=== PATIENT | female | born 1945 | race Caucasian/White ===

== ENCOUNTER 2023-09-12 08:34 | Observation (INO) ==
--- NOTE | 2023-08-16 13:32 | PAT Medication Instructions ---
Medication Instructions Date of Service August 16, 2023 Home Medications amlodipine 5 mg tablet (Norvasc) 5 mg PO HS lisinopril 10 mg tablet 10 mg PO QAM B-complex with vitamin C 1 tab PO QAM atorvastatin 40 mg tablet 40 mg PO HS bupropion HCl 150 mg 24 hr tablet, extended release 300 mg PO QAM cholecalciferol (vitamin D3) 125 mcg (5,000 unit) tablet (Vitamin D3) 250 mcg PO QAM duloxetine 60 mg capsule,delayed release 60 mg PO QAM furosemide 20 mg tablet (Lasix) 20 mg PO DAILY PRN leg edema gabapentin 100 mg capsule 100 mg PO TID gabapentin 400 mg capsule 400 mg PO TID memantine 5 mg tablet (Namenda) 5 mg PO BID pantoprazole 20 mg tablet,delayed release (Protonix) 20 mg PO QAM rivastigmine 4.6 mg/24 hour transdermal patch 4.6 mg transdermal QAM topiramate 50 mg tablet (Topamax) 50 mg PO BID trazodone 100 mg tablet 200 mg PO HS MEDICATION INSTRUCTIONS: STOP taking 24 hours before surgery rivastigmine 4.6 mg/24 hour transdermal patch 4.6 mg transdermal QAM DO NOT take the morning of surgery furosemide 20 mg tablet (Lasix) 20 mg PO DAILY PRN leg edema cholecalciferol (vitamin D3) 125 mcg (5,000 unit) tablet (Vitamin D3) 250 mcg PO QAM lisinopril 10 mg tablet 10 mg PO QAM B-complex with vitamin C 1 tab PO QAM Take morning of surgery With a small sip of water, OTHERWISE NOTHING TO EAT OR DRINK AFTER MIDNIGHT: gabapentin 100 mg capsule 100 mg PO TID gabapentin 400 mg capsule 400 mg PO TID topiramate 50 mg tablet (Topamax) 50 mg PO BID pantoprazole 20 mg tablet,delayed release (Protonix) 20 mg PO QAM duloxetine 60 mg capsule,delayed release 60 mg PO QAM memantine 5 mg tablet (Namenda) 5 mg PO BID bupropion HCl 150 mg 24 hr tablet, extended release 300 mg PO QAM Take evening before surgery atorvastatin 40 mg tablet 40 mg PO HS trazodone 100 mg tablet 200 mg PO HS amlodipine 5 mg tablet (Norvasc) 5 mg PO HS gabapentin 100 mg capsule 100 mg PO TID gabapentin 400 mg capsule 400 mg PO TID topiramate 50 mg tablet (Topamax) 50 mg PO BID memantine 5 mg tablet (Namenda) 5 mg PO BID Other Notes If you have any questions please call us at [phone] or [phone] or [phone] or [phone]
--- NOTE | 2023-08-22 11:43 | Anesthesiology Consultation ---
Date of Service August 22, 2023 Assessment & Plan (1) Encounter for pre-operative examination: - Case discussed with Dr. Brooke who advised sending communication form to PCP for confirmation if patient is to still be on levothyroxine and antiepileptic. He advised patient did not need PCP clearance/optimization approval overall. Will send document to PCP and obtain most recent office note from [facility] neurology. - pending confirmation of current medication list and medication instructions being sent to patient once sister who manages medications is available 08/29/23. - Patient's primary caregiver is out of town and friend who accompanied patient today was unsure of current medications. Patient and accompanying friend were comfortable being in room for friend to provide additional information when able given patient's memory changes. They advised her sister, RN, manages her medications and is available to contact 08/29/23. - difficult intubation: limited cervical spine ROM s/p cervical spine fusion. Chart Review Chart Review: Pending: Refer to Additional Notes / Consult section and Patient seen in Pre Admission Testing Teaching & Discussion Pre-Anesthesia Teaching/Discussion Notes: Instructed NPO after midnight before surgery, except medications with 15 cc of water. Medication instructions provid ed according to the PAT guidelines. History Surgery Operation Date: 09/12/23 11:55 Proposed Procedures p Left Reverse Total Shoulder Arthroplasty - Storm Marshall, Height/Weight Height: 5 ft 7 in Weight: 80.1 kg Allergies Allergy/AdvReac Type Severity Reaction Status Date / Time No Known Allergies Allergy Verified 08/15/23 10:56 Medications Home Medications Medication Instructions Recorded Confirmed Last Taken amlodipine 5 mg tablet (Norvasc) 5 mg PO HS 07/05/23 08/15/23 Unknown lisinopril 10 mg tablet 10 mg PO QAM 07/05/23 08/15/23 Unknown B-complex with vitamin C 1 tab PO QAM 08/15/23 08/15/23 Unknown atorvastatin 40 mg tablet 40 mg PO HS 08/15/23 08/15/23 Unknown bupropion HCl 150 mg 24 hr tablet, 300 mg PO QAM 08/15/23 08/15/23 Unknown extended release cholecalciferol (vitamin D3) 125 250 mcg PO QAM 08/15/23 08/15/23 Unknown mcg (5,000 unit) tablet (Vitamin D3) duloxetine 60 mg capsule,delayed 60 mg PO QAM 08/15/23 08/15/23 Unknown release furosemide 20 mg tablet (Lasix) 20 mg PO DAILY PRN leg edema 08/15/23 08/15/23 Unknown gabapentin 100 mg capsule 100 mg PO TID 08/15/23 08/15/23 Unknown gabapentin 400 mg capsule 400 mg PO TID 08/15/23 08/15/23 Unknown memantine 5 mg tablet (Namenda) 5 mg PO BID 08/15/23 08/15/23 Unknown pantoprazole 20 mg tablet,delayed 20 mg PO QAM 08/15/23 08/15/23 Unknown release (Protonix) rivastigmine 4.6 mg/24 hour 4.6 mg transdermal QAM 08/15/23 08/15/23 Unknown transdermal patch topiramate 50 mg tablet (Topamax) 50 mg PO BID 08/15/23 08/15/23 Unknown trazodone 100 mg tablet 200 mg PO HS 08/15/23 08/15/23 Unknown Past Medical History Medical History (Updated 08/23/23 @ 09:37 by Tania Augustin PA-C) Cervical vertebral fracture Chronic back pain Follows with Dr Charles ([facility]) Pain Management Degenerative disc disease Dementia Dx 2019; short term memory loss Alert and oriented x3 Depression Dry mouth H/O renal failure milo-operatively with knee surgeries in past History of COVID-spring- mild cold symptoms, resolved Hyperlipidemia Hypertension controlled, stable per pt Hypothyroidism pt unsure if is still taking levothyroxine Neurogenic bladder Straight cath PRN Follows with PCP PAD (peripheral artery disease) Patient unsure LLE stent ([facility]/approximately 2015) Peripheral neuropathy feet Seizure last seizure 2020 per pt Hx of lamictal daily but patient discontinued lamictal 03/2023 Follows with [facility] Neurology Sleep apnea 2lpm via n/c (non-compliant) Patient denies h/o stroke, heart attack, heart failure, blood clots/DVTs or bloo d transfusions. Exercise / Class Metabolic Activity III < 4 Walking/Shop/Light housework (denies chest discomfort or shortness of breath with usual activities) Past Family History Family History Other No family history of adverse response to anesthesia Past Surgical History Surgical History Failed spinal cord stimulator Removed H/O hand surgery right hand x2 History of appendectomy History of cataract surgery bilateral History of colonoscopy History of cystoscopy History of dilatation and curettage History of esophagogastroduodenoscopy (EGD) History of left shoulder replacement History of repair of rotator cuff right History of tonsillectomy Hx of angioplasty LLE stent ([facility]/approximately 2015) S/P ACL repair left S/P cervical spinal fusion C3/C4 Limited ROM, difficult turning to the left, minor difficulty up and down. S/P epidural steroid injection S/P left knee arthroscopy x2 S/P placement of nerve stimulator S/P total knee replacement x5 right TKA S/P trigger finger release x2 Status post surgery removal of spinal cord stimulator Past Anesthesia History Difficult Airway (s/p cervical spine surgery) and Other (awareness during a knee procedure, pt unsure which surgery) History of PONV No Hx of PONV and No Hx of Motion Sickness Social History Smoking Status: Never smoker Do You Dip or Chew Tobacco: No Hx Alcohol Use: No Hx Substance Use: No substance use type: does not use Review of Systems Patient denies chest pain, shortness of breath, dyspnea on exertion, reflux, fever, chills, cough, wheezing, or palpitations. Physical Exam Vital Signs Vitals BP 125/84 P 70 TEMP 98.7 SP02 94% on RA RESP 18 Physical Patient resting comfortably in chair in no acute distress, alert and oriented, responding appropriately throughout visit Full cervical extension range of motion without pain TMD 3.5 finger breadths Mallampati Score 2 Dentition: front upper implants, denies chipped or loose teeth, caps/crowns, or bridges Lungs: normal respiratory effort. Good air movement, clear throughout to auscultation, no adventitious breath sounds Cardiac: regular rate and rhythm, no murmurs noted Carotid arteries: negative bruit bilat Lab Results Anesthesia Preop Results Results Anesthesia Widget: WBC 8.36 K/ul (4.8-10.8) 08/22/23 Hgb 13.3 g/dl (12.0-16.0) 08/22/23 Hct 40.0 % (37.0-47.0) 08/22/23 Plt 261 K/uL (130-400) 08/22/23 Na 138 mmol/L (136-145) 08/22/23 K 3.9 mmol/L (3.5-5.1) 08/22/23 Cl 106 mmol/L (98-107) 08/22/23 CO2 27 mmol/L (21-32) 08/22/23 BUN 22 mg/dl (6-23) 08/22/23 Creat 0.94 mg/dl (0.6-1.2) 08/22/23 Glucose Level 96 mg/dl (70-99(Fasting)) 08/22/23 PT 10.9 Seconds (9.0-12.0) 08/22/23 PTT 27.9 Seconds (21.0-31.0) 08/22/23 INR 1.0 (0.9-1.1) 08/22/23 Blood Type O Positive 08/22/23 Antibody Screen NEGATIVE 08/22/23 Testing Electrocardiogram Date: 03/31/23 Sinus rhythm with sinus arrhythmia with 1st degree AV block, rate 71 bpm Nonspecific T wave abnormality Chest X-Ray Date: 10/13/22 *1view* Stable appearance without acute disease seen at this time
--- NOTE | 2023-08-29 09:04 | Communication Note ---
Date of Service: August 29, 2023 - Patient's medication instructions confirmed by her sister are being mailed to patient's home by sister's request.
--- NOTE | 2023-09-08 06:50 | History & Physical Report ---
Date of Service September 08, 2023 Assessment & Plan (1) Rotator cuff arthropathy of left shoulder: We will proceed with a conversion to a left reverse shoulder arthroplasty. Postoperatively she will be placed in a sling and kept overnight in the hospital for postop medical management. She plans to have the hospital set up home health before discharge. History of Present Illness Chief Complaint: Osteoarthritis of the left shoulder. Primary Care Provider: Antwan Barney Myra is a pleasant 78-year-old female who has been dealing with chronic left shoulder pain. She underwent a left shoulder resurfacing by Dr. Hanley in the past. Initially did well but she is now having more more pain in the shoulder. X-rays have shown worsening arthritis of the glenoid. She has decreased range of motion and concerns for rotator cuff tear. After failed conservative treatment, she has elected proceed with a conversion to a left reverse shoulder arthroplasty.. Allergies Allergy/AdvReac Type Severity Reaction Status Date / Time No Known Allergies Allergy Verified 08/15/23 10:56 Home Medications Medication Instructions Recorded Confirmed Type amlodipine 5 mg tablet (Norvasc) 5 mg PO HS 07/05/23 08/15/23 History lisinopril 10 mg tablet 10 mg PO QAM 07/05/23 08/15/23 History B-complex with vitamin C 1 tab PO QAM 08/15/23 08/15/23 History atorvastatin 40 mg tablet 40 mg PO HS 08/15/23 08/15/23 History bupropion HCl 150 mg 24 hr tablet, 300 mg PO QAM 08/15/23 08/15/23 History extended release cholecalciferol (vitamin D3) 125 250 mcg PO QAM 08/15/23 08/15/23 History mcg (5,000 unit) tablet (Vitamin D3) duloxetine 60 mg capsule,delayed 60 mg PO QAM 08/15/23 08/15/23 History release furosemide 20 mg tablet (Lasix) 20 mg PO DAILY PRN leg edema 08/15/23 08/15/23 History gabapentin 100 mg capsule 100 mg PO TID 08/15/23 08/15/23 History gabapentin 400 mg capsule 400 mg PO TID 08/15/23 08/15/23 History memantine 5 mg tablet (Namenda) 5 mg PO BID 08/15/23 08/15/23 History pantoprazole 20 mg tablet,delayed 20 mg PO QAM 08/15/23 08/15/23 History release (Protonix) rivastigmine 4.6 mg/24 hour 4.6 mg transdermal QAM 08/15/23 08/15/23 History transdermal patch topiramate 50 mg tablet (Topamax) 50 mg PO BID 08/15/23 08/15/23 History trazodone 100 mg tablet 200 mg PO HS 08/15/23 08/15/23 History hydrocodone 5 mg-acetaminophen 325 1 tab PO Q6H PRN Pain 09/01/23 09/01/23 History mg tablet Past Med/Surg History Medical History Cervical vertebral fracture Chronic back pain Follows with Dr Charles ([facility]) Pain Management Degenerative disc disease Dementia Dx 2019; short term memory loss Alert and oriented x3 Depression Dry mouth H/O renal failure milo-operatively with knee surgeries in past History of COVID-spring- mild cold symptoms, resolved Hyperlipidemia Hypertension controlled, stable per pt Hypothyroidism pt unsure if is still taking levothyroxine Neurogenic bladder Straight cath PRN Follows with PCP PAD (peripheral artery disease) Patient unsure LLE stent ([facility] [place]/approximately 2015) Peripheral neuropathy feet Seizure last seizure 2020 per pt Hx of lamictal daily but patient discontinued lamictal 03/[address] [facility] Neurology Sleep apnea 2lpm via n/c (non-compliant) Surgical History Failed spinal cord stimulator Removed H/O hand surgery right hand x2 History of appendectomy History of cataract surgery bilateral History of colonoscopy History of cystoscopy History of dilatation and curettage History of esophagogastroduodenoscopy (EGD) History of left shoulder replacement History of repair of rotator cuff right History of tonsillectomy Hx of angioplasty LLE stent ([facility] [place]/approximately 2015) S/P ACL repair left S/P cervical spinal fusion C3/C4 Limited ROM, difficult turning to the left, minor difficulty up and down. S/P epidural steroid injection S/P left knee arthroscopy x2 S/P placement of nerve stimulator S/P total knee replacement x5 right TKA S/P trigger finger release x2 Status post surgery removal of spinal cord stimulator Family History Other No family history of adverse response to anesthesia Social History Smoking Status: Never smoker Second Hand Exposure: No; Do You Dip or Chew Tobacco: No; Hx Alcohol Use: No Hx Substance Use: No Preferred Language: Zambian Communication Ability: Effective Angiography Nurse Required: No Beliefs That Will Affect Care: None Current Living Situation: Alone Feels Safe at Home: Yes Assistive Devices: Glasses, Hearing Aid - Left and Walker Review of Systems All systems reviewed & are unremarkable except as noted in HPI & below. Physical Exam On physical examination of the left shoulder, she is about 120 degrees of forward elevation and 20 agrees of abduction. She has weakness throughout. She has pain over the glenohumeral joint line. Constitutional WD/WN, vitals as above Eyes PERRL, conjunctivae normal, anicteric sclerae ENMT external ear and nose normal, oropharynx normal Neck trachea midline, no thyromegaly Respiratory normal respiratory effort, lungs clear to auscultation Cardiovascular RRR, no murmur, no edema Gastrointestinal (Abdomen) normal bowel sounds, soft, nontender, no hepatosplenomegaly Skin no rashes, warm and dry Psychiatric A+Ox3, euthymic affect Results & Data Results & Data Laboratory Results . Diagnostic Findings X-rays of the left shoulder show a well-placed left shoulder resurfacing with significant arthritis of the glenoid and some glenoid wear.. . PG Care Time/CCT Total # of Minutes Spent Total Time Spent with Patient: Total time spent is greater than 50% in coordination of care (as documented) at patient's floor/unit and/or counseling patient: Coding Level of Care Code None Diagnoses Rotator cuff arthropathy of left shoulder M12.812
[~2023-09-12 08:34] MED LIST: ACETAMINOPHEN 500 MG TAB PO SCH; BUPIVACAINE 0.5 % 5 MG/1 ML PF 10ML VIAL ONE; FAMOTIDINE 20 MG TAB PO SCH; GABAPENTIN 300 MG CAP PO SCH; LR 15ML/HR IV SCH; LR 60ML/HR IV SCH; ORTHO JOINT MIX INFIL SCH; TRANEXAMIC ACID 1,000 MG **IV Intra-op IV SCH; TRANEXAMIC ACID 1,000 MG **IV Pre-op IV SCH; VANCOMYCIN HCL 1,250 MG in SODIUM CHLORIDE 0.9% 250 ML IV SCH; dexAMETHasone 4 MG TAB PO SCH
--- NOTE | 2023-09-12 09:15 | History & Physical Bridge Note ---
Date of Service September 12, 2023 History & Physical Bridge Note I have examined the patient, reviewed the History & Physical and in the interval since the performance of the History & Physical I have noted the following changes of clinical significance: no changes noted
[2023-09-12] MEDS ORDERED: fentaNYL citrate PF 100 MCG/2 ML VIAL ONE (09:20)
[2023-09-12] MEDS ORDERED: MIDAZOLAM HCL 1 MG/ML 2ML VIAL ONE (09:20)
[2023-09-12] MEDS ORDERED: ORTHO JOINT ANESTHETIC ONE (09:43)
[2023-09-12] MEDS ORDERED: ATROPINE SULFATE 0.1 MG/ML 10ML SYR IV PRN (09:53)
[2023-09-12] MEDS ORDERED: ePHEDrine sulfate 50 MG/ML AMP IV PRN (09:53)
[2023-09-12] MEDS ORDERED: ONDANSETRON INJ 2 MG/ML 2 ML VIAL IV PRN ×2 (09:53→13:20)
[2023-09-12] MEDS ORDERED: LIDOCAINE 2% 2 ML VIAL/AMP(20MG/ML) INFIL ONE (11:22)
[2023-09-12] MEDS ORDERED: PROPOFOL IV EMULSION 10 MG/ML 20 ML VIAL IV ONE (11:22)
[2023-09-12] MEDS ORDERED: ONDANSETRON INJ 2 MG/ML 2 ML VIAL ONE (11:22)
[2023-09-12] MEDS ORDERED: ePHEDrine sulfate 50 MG/5 ML SYR ONE (11:47)
[2023-09-12] MEDS ORDERED: PHENYLEPHRINE HCL 10 MG/ML VIAL ONE (11:47)
[2023-09-12] MEDS ORDERED: GLYCOPYRROLATE 0.2 MG/ML VIAL ONE (11:47)
--- NOTE | 2023-09-12 11:47 | Operative Report ---
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 (Left) - Storm Marshall DO Surgeon Storm Marshall DO Cotton Washer Storm Mcelroy PA-C Estimated Blood Loss 300 Findings Consistent with Post-Op Diagnosis Specimens None Description of Procedure Implants used: I used a [employer] Comprehensive reverse total shoulder arthroplasty system with a size 12 press fit micro humeral stem, a +6 offset humeral tray and a +3 retentive humeral bearing, a 25 mm small augment baseplate with a 6.5 mm central screw and superior and inferior locking screws, and a size 40 mm eccentric glenosphere. Myra arrived at [facility] for the above procedure. She was seen in the preoperative holding area and the operative extremity was identified and signed. She was given a preoperative antibiotic, TXA, and an interscalene nerve block. She was taken back to the operating room, laid on table in supine position, and put under general anesthesia. She was then put into the beachchair position. The shoulder was then prepped and draped in sterile fashion. A timeout was done and the patient and the operative extremity was properly identified. A deltopectoral approach was used. Dissection was taken down through the fascia and the deltoid was retracted laterally and the conjoined tendon was retracted medially. This dissection took longer than usual due to the amount of scar tissue formation. The anterior shoulder was exposed. The biceps tendon was chronically torn from the previous procedure. The subscapularis was then directly released off the lesser tuberosity with a peel technique. The inferior capsule was released and the humeral head was dislocated. There was a previous humeral resurfacing in place. An oscillating saw was used to resect the bone from the head resurfacing. The resurfacing was then removed. A canal finding reamer was sent down the center of the humeral canal. Sequential reaming up to a size 12 reamer was done. Off that reamer, a proximal humeral resection guide was placed. The proximal humerus was resected at 135 of inclination and 25 of retroversion. Osteophytes were then removed and the glenoid was exposed. Time was spent doing a complete capsular and labral release. The glenoid guide was then placed in the inferior aspect of the glenoid. A 3.2 mm Steinmann pin was then placed into the glenoid vault at 10 of inclination. The glenoid baseplate was then reamed. The final size 25 mm small augment baseplate was then impacted in the place. A 6.5 mm central screw was then placed followed by superior and inferior locking screws. A 40 mm eccentric glenosphere was then impacted into place. Surrounding soft tissues were then injected with 100 cc an orthopedic pain control cocktail. The proximal humerus was then exposed. Sequential broaching of the humerus up to a size 12 broach was done. Off that broach a +6 offset and +3 retentive humeral tray was trialed. The shoulder was then reduced, brought through a full range of motion, and felt to be stable. The shoulder was then dislocated and the broach was removed. The final size 12 micro press-fit humeral stem was then impacted into place. A +3 retentive humeral bearing was then snapped onto a +6 offset humeral tray. The humeral tray was then impacted onto the humeral stem. The shoulder was once again reduced, brought through a full range of motion, and felt to be stable. Subscapularis was retracted and unable to be repaired. A dilute betadyne lavage was then done for 3 minutes. The joint was then irrigated with normal saline solution. Hemostasis was obtained. The interval was closed with 2-0 Vicryl suture. The skin was then closed with 2-0 Vicryl and trever. A Silverlon dressing was placed and the arm was rested in a regular arm sling. She was then extubated and transferred to a hospital bed. She taken to the postanesthesia care unit in stable condition. She tolerated the procedure well. Storm Mcelroy PA-C, was present for the entire procedure. He was critical for patient positioning, prepping, draping, retraction exposure, wound closure and application of sterile dressing. I attest to the content of the Intraoperative Record and any orders documented therein. Any exceptions are noted below.
[2023-09-12] MEDS: fentaNYL citrate PF 100 MCG/2 ML VIAL IV PRN ×4 (12:22→12:40)
--- NOTE | 2023-09-12 13:06 | Anesthesiology Progress Note ---
Date of Service September 12, 2023 Anesthesia Post Procedure Vital Signs Vital Signs: Temp Pulse Pulse Resp BP Pulse Ox O2 Del Method 09/12/23 12:55 97.5 F L 56 L 14 110/73 96 Nasal Cannula 09/12/23 12:45 67 18 114/70 96 Nasal Cannula 09/12/23 12:35 62 16 122/73 96 Nasal Cannula 09/12/23 12:25 74 18 134/84 97 Oxymask 09/12/23 12:15 62 16 127/77 96 Oxymask 09/12/23 12:05 97.3 F L 65 16 134/85 97 Oxymask 09/12/23 09:10 97.7 F 65 20 127/95 98 Room Air O2 Flow Rate 09/12/23 12:55 2 09/12/23 12:45 2 09/12/23 12:35 2 09/12/23 12:25 6 09/12/23 12:15 6 09/12/23 12:05 6 09/12/23 09:10 Pain Intensity Left Shoulder: Pain Intensity: 7 Transfer of Care Handoff Completed per policy Notes Mental Status: alert / awake / arousable and participated in evaluation Patient Amnestic to Procedure: Yes Nausea / Vomiting: adequately controlled Pain: adequately controlled Airway Patency, RR, SpO2: stable & adequate BP & HR: stable & adequate Hydration State: stable & adequate Anesthetic Complications: no major complications apparent and Pt Satisfied with anesthetic care
[2023-09-12] MEDS ORDERED: VANCOMYCIN CONSULT ACTIVE PRN (13:20)
[2023-09-12] MEDS ORDERED: NALOXONE HCL 0.4 MG/1 ML VIAL/CARP IV PRN (13:20)
[2023-09-12] MEDS ORDERED: bisacodyL 10 MG SUPP PR PRN (13:20)
[2023-09-12] MEDS ORDERED: METOCLOPRAMIDE HCL INJ 5 MG/ML 2 ML VIAL IV PRN (13:20)
[2023-09-12] MEDS ORDERED: FUROSEMIDE 20 MG TAB PO PRN (13:20)
[2023-09-12] MEDS ORDERED: HYDROmorphone INJ 0.5 MG/0.5 ML SYR IV PRN (13:20)
[2023-09-12] MEDS ORDERED: MAGNESIUM HYDROXIDE SUSP 30 ML UDC PO PRN (13:20)
[2023-09-12] MEDS: oxyCODONE HCL IR 5 MG TAB (IMMEDIATE RELEASE) PO PRN ×2 (14:26→19:54)
[2023-09-12] MEDS: ACETAMINOPHEN 500 MG TAB PO SCH ×2 (14:27→21:27)
[2023-09-12] MEDS: GABAPENTIN 400 MG CAP PO SCH ×2 (14:27→19:55)
[2023-09-12] MEDS: GABAPENTIN 100 MG CAP PO SCH ×2 (14:27→19:51)
[2023-09-12] MEDS: SODIUM CHLORIDE 0.9% 1,000 ML IV SCH ×2 (14:28→22:48)
--- NOTE | 2023-09-12 15:25 | XRay Report ---
XR shoulder LT min 2V routine CLINICAL HISTORY: Post shoulder surgery COMPARISON: Left shoulder radiographs July 05, 2023. FINDINGS: Alignment of the reverse total left shoulder arthroplasty is anatomic. There is no peripro sthetic fracture or unexpected radiopaque foreign body. There are skin trever. IMPRESSION: Expected findings following reverse total left shoulder arthroplasty. ACT 112: Negative or not required by law. Electronically signed by: Justin Rojas M.D. 09/12/2023 3:23 PM
[2023-09-12] MEDS: DOCUSATE SODIUM 100 MG CAP PO SCH (19:52)
[2023-09-12] MEDS: MEMANTINE HCL 5 MG TAB PO SCH (19:52)
[2023-09-12] MEDS: TOPIRAMATE 50 MG TAB PO SCH (19:53)
[2023-09-12] MEDS ORDERED: ATORVASTATIN 40 MG TAB PO SCH (21:00)
[2023-09-12] MEDS ORDERED: SENNA 8.6 MG TAB PO SCH (21:00)
[2023-09-12] MEDS ORDERED: traZODone HCL 100 MG TAB PO SCH (21:00)
[2023-09-12] MEDS ORDERED: amLODIPine BESYLATE 5 MG TAB PO SCH (21:00)
[2023-09-12] MEDS ORDERED: ZOLPIDEM TARTRATE 10 MG TAB PO PRN (21:45)
[2023-09-12] MEDS ORDERED: VANCOMYCIN HCL 1,250 MG in SODIUM CHLORIDE 0.9% 500 ML IV SCH (22:15)
[2023-09-13] MEDS: oxyCODONE HCL IR 5 MG TAB (IMMEDIATE RELEASE) PO PRN ×3 (01:51→13:42)
[2023-09-13] MEDS: ACETAMINOPHEN 500 MG TAB PO SCH ×2 (05:13→13:41)
--- NOTE | 2023-09-13 05:56 | Orthopedic Progress Note ---
Date of Service September 13, 2023 Assessment & Plan (1) Status post reverse total replacement of left shoulder: Overall she is doing fairly well. She is not having much pain in the left shoulder. She will be seen by physical therapy today for ambulation and range of motion exercises. She understands the nerve block should wear off throughout the day today. The Simons will be discontinued and she can be discharged home later today. She will follow-up with orthopedics in 2 weeks. Abdoulaye Renteria was seen and examined at bedside this morning. Overall she is doing fairly well. She is not having too much pain in the left shoulder. She is a little bit annoyed and frustrated with the nerve block. She still dealing with some periscapular pain. She has no other complaints.. Review of Systems All systems reviewed & are unremarkable except as noted in HPI & below. Physical Exam On physical examination of the left arm, the dressing is clean and dry. She is wearing her sling as instructed. The nerve block is still in effect.. Results & Data Results & Data Laboratory Results . Diagnostic Findings Postoperative x-rays of the left shoulder show the prosthesis to be in anatomic alignment without any evidence of fracture complication, or loosening.. PG Care Time/CCT Total # of Minutes Spent Total Time Spent with Patient: Total time spent is greater than 50% in coordination of care (as documented) at patient's floor/unit and/or counseling patient: Coding Level of Care Code 59909 Post Operative Follow-Up Diagnoses Status post reverse total replacement of left shoulder Z96.612
[2023-09-13] MEDS ORDERED: dexAMETHasone 4 MG TAB PO SCH (08:00)
[2023-09-13] MEDS ORDERED: MULTIVITAMIN TAB PO SCH (09:00)
[2023-09-13] MEDS ORDERED: lisinopril 10 MG TAB PO SCH (09:00)
[2023-09-13] MEDS ORDERED: DULoxetine HCL 60 MG CAP PO SCH (09:00)
[2023-09-13] MEDS ORDERED: buPROPion XL 300 MG TABCR PO SCH (09:00)
[2023-09-13] MEDS: GABAPENTIN 100 MG CAP PO SCH ×2 (09:22→13:42)
[2023-09-13] MEDS: TOPIRAMATE 50 MG TAB PO SCH (09:23)
[2023-09-13] MEDS: DOCUSATE SODIUM 100 MG CAP PO SCH (09:23)
[2023-09-13] MEDS: GABAPENTIN 400 MG CAP PO SCH ×2 (09:23→13:42)
[2023-09-13] MEDS: MEMANTINE HCL 5 MG TAB PO SCH (09:23)
--- NOTE | 2023-09-28 16:42 | Discharge Summary ---
Date of Service September 28, 2023 Admission HPI (Per Admitting) Myra is a pleasant 78-year-old female who has been dealing with chronic left shoulder pain. She underwent a left shoulder resurfacing by Dr. Hanley in the past. Initially did well but she is now having more more pain in the shoulder. X-rays have shown worsening arthritis of the glenoid. She has decreased range of motion and concerns for rotator cuff tear. After failed conservative treatment, she has elected proceed with a conversion to a left reverse shoulder arthroplasty.. Admission Exam (Per Admitting) On physical examination of the left shoulder, she is about 120 degrees of forward elevation and 20 agrees of abduction. She has weakness throughout. She has pain over the glenohumeral joint line. Principal Diagnosis Same as "Discharge Diagnosis" noted below under Discharge Instructions. Discharge Exam On physical examination of the left arm, the dressing is clean and dry. She is wearing her sling as instructed. The nerve block is still in effect.. Discharge Data Procedures Performed Operation Date: 09/12/23 10:00 Actual Procedures p Left Reverse Total Shoulder Arthroplasty(Left) - Storm Marshall DO Ordered Studies 09/12/23 05:00 US - OR guided needle placemen Routine Hospital Course (1) Status post reverse total replacement of left shoulder: On September 12, 2023 Myra arrived at [facility] and underwent a left reverse shoulder replacement without complication. She had a general anesthetic and a left interscalene nerve block. Postoperatively she was placed in a sling and transferred to the general orthopedic floors. Her hospital course was uneventful. On postop day #1, her vital signs were stable and her pain was well controlled. She was able to participate well with physical therapy doing ambulation and range of motion exercises. Her Simons was discontinued. She was then discharged home. She will follow-up orthopedics in 2 weeks. PG Care Time/CCT Total # of Minutes Spent Total Time Spent with Patient: Total time spent is greater than 50% in coordination of care (as documented) at patient's floor/unit and/or counseling patient: Discharge Plan Discharge Items Patient Disposition: Home - Home Health Services Reason For Visit: DJD Left Shoulder Discharge Diagnosis: Left reverse shoulder replacement Activity: Resume your previous activity Non-emergency contact: Surgeon Call non-emergency contact if: your wound has increased redness and your wound has increased drainage Follow-up/Referrals: Antwan Barney M.D. [Primary Care Provider] - Diet: Regular Addtl Attending Provider Instructions: Activity and Therapy Recommendations: * If you are using [facility] then therapy will be provided at your home until they feel you have accomplished all of your goals. * If you are using [facility] then Physical Therapy will be provided until they feel you are ready to start Outpatient Physical Therapy. * If you are not using home therapy then Outpatient Physical Therapy should start about 3-5 days from your day of surgery. Therapy will last about 8-12 weeks * Wear your sling for 3 weeks, unless otherwise instructed. You may remove your sling to shower and to dress, but otherwise, you should be in your sling at all times, including while sleeping * The shoulder replacement is very stable and you can use your hand while in the sling * You were shown a series of exercises in the hospital. Do these exercises daily including the exercises you were shown in physical therapy. Medications: * Narcotic You will likely be sent home from the hospital with a prescription for the narcotic pain medication that worked best throughout your stay. * Bactrim-take the antibiotic twice a day for 10 days to help prevent any possible infections. * Other medications may be prescribed for specific circumstances. If you have any questions, please call the office at . * Resume previous home medications unless otherwise instructed Dressing Care: Leave the Silverlon dressing in place for 7 days. After 7 days you may remove the dressing. If the incision is not draining then you may leave the trever open to air. If there is a little bit of drainage or if the trever are getting stuck on your clothing then cover the incision with a dry dressing. The trever will be removed at your 2 week follow-up appointment. Showering: You may shower with the Silverlon dressing in place. Do not let the shower spray hit the dressing directly. Pat the Silverlon dressing dry. If the dressing becomes wet underneath, then simply remove the dressing. Keep the incision dry until you are 7 days out from the day of surgery. After 7 days you may remove the Silverlon dressing and shower with the trever exposed. Let soapy water run over the trever and pat them dry. Do not scrub or soak the incision. Things To Watch For: * Drainage from the incision site that occurs more than one week after your surgery. * Increased redness at the incision site. * Fever above 102 degrees Fahrenheit. * Unusual chest pain or shortness of breath. * Call [facility] at with any of the above problems Follow-Up Visit: Follow-up with Dr. Marshall's PA (Storm Mcelroy) 2-3 weeks after your day of surgery. He will remove your trever and answer any questions. If you have any additional questions or concerns, Dr Marshall is usually in the office at the same time and will be available An appointment was probably scheduled when you signed-up for surgery in the office. If you have any questions call More detailed instructions as well as Frequently Asked Questions were provided in a folder by our office when you signed-up for surgery. Please review these instructions when you get home. If you have any further questions or concerns, please feel free to call the office at [phone] Pending Studies at Discharge: No Stand-Alone Forms: [facility], Pain - Opioid Pain Management, Smoking Cessation Medications and DC Order Prescriptions: New oxycodone 5 mg Tablet 5 mg PO Q4H PRN (Reason: pain) Qty: 30 0RF Continued amlodipine [Norvasc] 5 mg tablet 5 mg PO HS lisinopril 10 mg tablet 10 mg PO QAM Rx Instructions: LAST FILLED 04/07/23 FOR 5 TABLETS. atorvastatin 40 mg Tablet 40 mg PO HS gabapentin 400 mg Capsule 400 mg PO TID Rx Instructions: TOTAL DOSE 500 MG--TAKES WITH 100 MG CAPSULE. pantoprazole [Protonix] 20 mg Tablet,Delayed Release (Dr/Ec) 20 mg PO QAM Rx Instructions: LAST FILLED 04/07/23 FOR 5 TABS. trazodone 100 mg Tablet 200 mg PO HS furosemide [Lasix] 20 mg Tablet 20 mg PO DAILY PRN (Reason: leg edema) Rx Instructions: LAST FILLED 04/07/23 FOR 5 TABS. gabapentin 100 mg Capsule 100 mg PO TID Rx Instructions: TOTAL DOSE 500 MG--TAKES WITH 400 MG CAPSULE. B-complex with vitamin C Tablet 1 tab PO QAM bupropion HCl 150 mg Tablet Extended Release 24 Hr 300 mg PO QAM Rx Instructions: LAST FILLED 03/01/23 FOR 90 DAYS. memantine [Namenda] 5 mg Tablet 5 mg PO BID rivastigmine 4.6 mg/24 hour Patch 24 Hour 4.6 mg TRANSDERMAL QAM Rx Instructions: LAST FILLED 04/08/23 FOR 30 DAYS. cholecalciferol (vitamin D3) [Vitamin D3] 125 mcg (5,000 unit) Tablet 250 mcg PO QAM topiramate [Topamax] 50 mg Tablet 50 mg PO BID hydrocodone-acetaminophen 5-325 mg Tablet 1 tab PO Q6H PRN (Reason: Pain) No Action oxycodone 5 mg tablet 5 mg PO Q6H PRN (Reason: pain) Qty: 30 0RF zolpidem 10 mg tablet 10 mg PO HS duloxetine 30 mg capsule,delayed release(DR/EC) 30 mg PO DAILY oxycodone 5 mg tablet 5 mg PO Q6H PRN (Reason: pain) Qty: 12 0RF Krames/Other Patient Handouts: Total Shoulder Replacement Surgery Admission Data Admit Date/Time: 09/12/23 12:07 Attending Provider: Storm Marshall Admit Provider: Storm Marshall Primary Care Provider: Antwan Barney Other Interventions: Discharge Summary Assessment (RN) Last Done: 09/13/23 08:00
== END 2023-09-13 15:45 | disposition home health service (06) ==
LOC: ASU 08:34 → 3E 08:34

== ENCOUNTER 2024-09-24 08:20 | Inpatient (IN) ==
--- NOTE | 2024-08-20 12:56 | PAT Medication Instructions ---
Medication Instructions Date of Service August 20, 2024 Home Medications Medication Instructions Recorded oxycodone 5 mg tablet 5 mg PO Q6H PRN pain #30 tabs 08/08/24 amlodipine 5 mg tablet (Norvasc) 5 mg PO HS lisinopril 10 mg tablet 10 mg PO QAM B-complex with vitamin C 1 tab PO QAM atorvastatin 40 mg tablet (Lipitor) 40 mg PO HS bupropion HCl 150 mg 24 hr tablet, extended release 300 mg PO QAM cholecalciferol (vitamin D3) 125 mcg (5,000 unit) tablet (Vitamin D3) 250 mcg PO QAM furosemide 20 mg tablet (Lasix) 20 mg PO DAILY PRN leg edema gabapentin 100 mg capsule 100 mg PO TID gabapentin 400 mg capsule (Neurontin) 400 mg PO TID memantine 5 mg tablet (Namenda) 5 mg PO BID pantoprazole 20 mg tablet,delayed release (Protonix) 20 mg PO QAM rivastigmine 4.6 mg/24 hour transdermal patch (Exelon Patch) 4.6 mg transdermal QAM topiramate 50 mg tablet (Topamax) 50 mg PO BID trazodone 100 mg tablet 200 mg PO HS duloxetine 30 mg capsule,delayed release 30 mg PO DAILY zolpidem 10 mg tablet (Ambien) 10 mg PO HS SLEEP oxycodone 5 mg tablet 5 mg PO Q6H PRN pain Medical Marijuana Cream 1 applic topical HS diazepam 10 mg tablet (Valium) 10 mg PO TID PRN Neuropathy Continue as directed duloxetine 30 mg capsule,delayed release 30 mg PO DAILY STOP taking 48 hours before surgery rivastigmine 4.6 mg/24 hour transdermal patch (Exelon Patch) 4.6 mg transdermal QAM STOP taking 24 hours before surgery Medical Marijuana Cream 1 applic topical HS DO NOT take the morning of surgery lisinopril 10 mg tablet 10 mg PO QAM B-complex with vitamin C 1 tab PO QAM cholecalciferol (vitamin D3) 125 mcg (5,000 unit) tablet (Vitamin D3) 250 mcg PO QAM furosemide 20 mg tablet (Lasix) 20 mg PO DAILY PRN leg edema Take morning of surgery With a small sip of water, OTHERWISE NOTHING TO EAT OR DRINK AFTER MIDNIGHT: bupropion HCl 150 mg 24 hr tablet, extended release 300 mg PO QAM gabapentin 100 mg capsule 100 mg PO TID gabapentin 400 mg capsule (Neurontin) 400 mg PO TID memantine 5 mg tablet (Namenda) 5 mg PO BID pantoprazole 20 mg tablet,delayed release (Protonix) 20 mg PO QAM topiramate 50 mg tablet (Topamax) 50 mg PO BID oxycodone 5 mg tablet 5 mg PO Q6H PRN pain (if needed) diazepam 10 mg tablet (Valium) 10 mg PO TID PRN Neuropathy (if needed) Take evening before surgery amlodipine 5 mg tablet (Norvasc) 5 mg PO HS atorvastatin 40 mg tablet (Lipitor) 40 mg PO HS furosemide 20 mg tablet (Lasix) 20 mg PO DAILY PRN leg edema (if needed) gabapentin 100 mg capsule 100 mg PO TID gabapentin 400 mg capsule (Neurontin) 400 mg PO TID memantine 5 mg tablet (Namenda) 5 mg PO BID topiramate 50 mg tablet (Topamax) 50 mg PO BID trazodone 100 mg tablet 200 mg PO HS zolpidem 10 mg tablet (Ambien) 10 mg PO HS SLEEP oxycodone 5 mg tablet 5 mg PO Q6H PRN pain (if needed) diazepam 10 mg tablet (Valium) 10 mg PO TID PRN Neuropathy (if needed) Other Notes If you have any questions please call us at [phone] or [phone] or [phone] or [phone]
--- NOTE | 2024-08-29 13:11 | Anesthesiology Consultation ---
Date of Service August 29, 2024 Assessment & Plan (1) Encounter for pre-operative examination: - Infectious disease screening: Per assessment on 08/29/24: No known recent infectious disease contacts or current infectious disease symptoms. - Outpatient joint assessment: Pt currently scheduled for inpatient pathway. If surgeon requests review for outpatient joint pathway, patient is not recommended candidate for outpatient joint program from anesthesia standpoint based on available information. - S/P Left reverse TSA (09/12/23): LMA#4 atraumatic + regional at [facility]. No issues noted per post-op anesthesia progress note. Chart Review Chart Review: Acceptable Risk for Surgery and Patient seen in Pre Admission Testing Teaching & Discussion Chronic dysphagia: Reports taking medications with apple sauce/pepsi due to this. Patient made aware of NPO guidelines: nothing to eat or drink after mid night before surgery, except medications with 15 cc of water. Patient will limit AM DOS medications given NPO guidelines/difficulty with taking large quantities of oral medications. Did advise patient to take Topamax with small sip of water morning of surgery as prescribed (though patient states this is not prescribed d/t seizure hx, patient has had a single episode seizure 2020). She voiced under standing and feels she would be able to do this. History Surgery Operation Date: 09/24/24 09:40 Proposed Procedures p Right Reverse Total Shoulder Arthroplasty - Storm Marshall, Height/Weight Height: 5 ft 7 in Weight: 79.3 kg Allergies Allergy/AdvReac Type Severity Reaction Status Date / Time No Known Allergies Allergy Verified 08/20/24 09:31 Medications Home Medications Medication Instructions Recorded Confirmed Last Taken amlodipine 5 mg tablet (Norvasc) 5 mg PO HS 07/05/23 08/20/24 09/18/23 lisinopril 10 mg tablet 10 mg PO QAM 07/05/23 08/20/24 09/11/23 08:00 B-complex with vitamin C 1 tab PO QAM 08/15/23 08/20/24 09/19/23 atorvastatin 40 mg tablet (Lipitor) 40 mg PO HS 08/15/23 08/20/24 09/18/23 bupropion HCl 150 mg 24 hr tablet, 300 mg PO QAM 08/15/23 08/20/24 09/12/23 07:00 extended release cholecalciferol (vitamin D3) 125 250 mcg PO QAM 08/15/23 08/20/24 09/19/23 mcg (5,000 unit) tablet (Vitamin D3) furosemide 20 mg tablet (Lasix) 20 mg PO DAILY PRN leg edema 08/15/23 08/20/24 Unknown gabapentin 100 mg capsule 100 mg PO TID 08/15/23 08/20/24 09/19/23 08:00 gabapentin 400 mg capsule 400 mg PO TID 08/15/23 08/20/24 09/19/23 08:00 (Neurontin) memantine 5 mg tablet (Namenda) 5 mg PO BID 08/15/23 08/20/24 09/19/23 08:00 pantoprazole 20 mg tablet,delayed 20 mg PO QAM 08/15/23 08/20/24 09/12/23 07:00 release (Protonix) topiramate 50 mg tablet (Topamax) 50 mg PO BID 08/15/23 08/20/24 09/19/23 08:00 trazodone 100 mg tablet 200 mg PO HS 08/15/23 08/20/24 09/18/23 duloxetine 30 mg capsule,delayed 30 mg PO DAILY 09/19/23 08/20/24 09/19/23 release zolpidem 10 mg tablet (Ambien) 10 mg PO HS SLEEP 09/19/23 08/20/24 Unknown oxycodone 5 mg tablet 5 mg PO Q6H PRN pain #30 tabs 08/08/24 08/20/24 Unknown Medical Marijuana Cream 1 applic topical HS 08/20/24 08/20/24 Unknown diazepam 10 mg tablet (Valium) 10 mg PO TID PRN Neuropathy 08/20/24 08/20/24 Unknown rivastigmine tartrate 1 tab PO BID 08/29/24 08/29/24 Unknown Past Medical History Medical History Cervical vertebral fracture Chronic back pain Follows with Dr Charles (LISETTE Flores) Pain Management Degenerative disc disease Dementia Dx 2020; short term memory loss Alert and oriented x3 Depression Dry mouth Dysphagia Chronic/occasional, takes medications with "applesauce or pepsi" H/O renal failure Perioperative knee surgeries in past Hearing loss Occasional left hearing aid use "when watching TV" History of COVID-spring- mild cold symptoms, resolved Hx MRSA infection x2 r/t knee replacement ([facility])- 15+ years ago Hyperlipidemia Hypertension Hypothyroidism Euthyroid/PCP monitoring Neurogenic bladder Straight cath PRN (rare occurrences) Follows with PCP Osteoarthritis of right shoulder PAD (peripheral artery disease) Patient unsure LLE stent ([facility]/2015) Peripheral neuropathy Feet/Hands/Arms Seizure Single episode 2020 Sleep apnea Per records Exercise / Class Metabolic Activity II 4-5 Yardwork/Stairs/Walk up hill (one FS: No CP, no SOB) Past Family History Family History Other No family history of adverse response to anesthesia Past Surgical History Surgical History Failed spinal cord stimulator Removed H/O hand surgery right hand x2 History of adverse reaction to anesthesia Awareness History of appendectomy History of cataract surgery bilateral History of colonoscopy History of cystoscopy History of dilatation and curettage History of esophagogastroduodenoscopy (EGD) History of left shoulder replacement Left reverse TSA (09/12/23): LMA#4, atraumatic LMA attempt x1 + regional at [facility] History of repair of rotator cuff right History of tonsillectomy Hx of angioplasty LLE stent ([facility]/2015) S/P ACL repair left S/P cervical spinal fusion C3/C4 S/P epidural steroid injection S/P left knee arthroscopy x2 S/P placement of nerve stimulator S/P total knee replacement x5 right TKA S/P trigger finger release x2 Status post surgery removal of spinal cord stimulator Past Anesthesia History No Family Hx of Anesthesia Complications and Other (Awareness with previous knee surgery) History of PONV No Hx of PONV and No Hx of Motion Sickness Social History Smoking Status: Never smoker Do You Dip or Chew Tobacco: No Hx Alcohol Use: No Hx Substance Use: Yes substance use type: marijuana (Medical Marijuana Cream- Lower Extremities HS PRN neuropathy) and other Review of Systems Patient denies chest pain, shortness of breath, dyspnea on exertion, fever, chills, cough, wheezing, palpitations. Physical Exam Vital Signs BP 156/95 P 69 TEMP 99.0 SP02 96%RA RESP 16 Physical Mildly decreased cervical extension range of motion. Full TMJ range of motion. TMD 3 finger breaths Mallampati Score I Dentition: intact, upper caps Lungs: clear throughout to auscultation Cardiac: regular rate and rhythm, no murmurs noted Spine: normal Carotid arteries: negative bruit Extremities: no LE edema Lab Results Anesthesia Preop Results Results Anesthesia Widget: WBC 6.38 K/ul (4.8-10.8) 08/29/24 Hgb 13.2 g/dl (12.0-16.0) 08/29/24 Hct 39.4 % (37.0-47.0) 08/29/24 Plt 234 K/uL (130-400) 08/29/24 Na 141 mmol/L (136-145) 08/29/24 K 3.4 mmol/L (3.5-5.1) L 08/29/24 Cl 107 mmol/L (98-107) 08/29/24 CO2 25 mmol/L (21-32) 08/29/24 BUN 17 mg/dl (6-23) 08/29/24 Creat 0.96 mg/dl (0.6-1.2) 08/29/24 Glucose Level 95 mg/dl (70-99(Fasting)) 08/29/24 PT 10.9 Seconds (9.0-12.0) 08/29/24 PTT 28 Seconds (21-31) 08/29/24 INR 1.0 (0.9-1.1) 08/29/24 Blood Type O Positive 08/29/24 Antibody Screen NEGATIVE 08/29/24 Testing Electrocardiogram Date: 08/29/24 SR with first degree AVB at 63bpm. "Otherwise normal ECG" Chest X-Ray Date: 08/29/24 FINDINGS: Left reverse shoulder arthroplasty is seen. The aorta is tortuous. The remainder of the cardiomediastinal silhouette is unremarkable. The lungs are clear. No evidence of pleural effusion or pneumothorax. IMPRESSION: No acute chest disease.
[~2024-09-24 08:20] MED LIST changes: -ACETAMINOPHEN 500 MG TAB PO SCH; -FAMOTIDINE 20 MG TAB PO SCH; -GABAPENTIN 300 MG CAP PO SCH; -LR 15ML/HR IV SCH; -LR 60ML/HR IV SCH; -ORTHO JOINT MIX INFIL SCH; -TRANEXAMIC ACID 1,000 MG **IV Intra-op IV SCH; -TRANEXAMIC ACID 1,000 MG **IV Pre-op IV SCH; -VANCOMYCIN HCL 1,250 MG in SODIUM CHLORIDE 0.9% 250 ML IV SCH; -dexAMETHasone 4 MG TAB PO SCH
--- NOTE | 2024-09-24 08:51 | History & Physical Bridge Note ---
Date of Service September 24, 2024 History & Physical Bridge Note I have examined the patient, reviewed the History & Physical and in the interval since the performance of the History & Physical I have noted the following changes of clinical significance: no changes noted
[2024-09-24] MEDS ORDERED: fentaNYL citrate PF 100 MCG/2 ML VIAL ONE (08:54)
[2024-09-24] MEDS ORDERED: MIDAZOLAM HCL 1 MG/ML 2ML VIAL ONE (08:54)
[2024-09-24] MEDS: LR 60ML/HR IV SCH (09:36)
[2024-09-24] MEDS: LACTATED RINGER'S 500 ML IV SCH (09:37)
[2024-09-24] MEDS: ACETAMINOPHEN 500 MG TAB PO SCH ×2 (09:37→14:28)
[2024-09-24] MEDS: GABAPENTIN 300 MG CAP PO SCH (09:38)
[2024-09-24] MEDS ORDERED: HYDROmorphone INJ 1 MG/ML SYRINGE IV PRN (09:38)
[2024-09-24] MEDS ORDERED: ePHEDrine sulfate 50 MG/ML AMP IV PRN (09:38)
[2024-09-24] MEDS: FAMOTIDINE 20 MG TAB PO SCH (09:38)
[2024-09-24] MEDS ORDERED: ATROPINE SULFATE 0.1 MG/ML 10ML SYR IV PRN (09:38)
[2024-09-24] MEDS ORDERED: ONDANSETRON INJ 2 MG/ML 2 ML VIAL IV PRN (09:38)
[2024-09-24] MEDS: dexAMETHasone**PF** 10 MG/ML VIAL IV SCH (09:38)
[2024-09-24] MEDS: TRANEXAMIC ACID 1,000 MG **IV Pre-op IV SCH (10:05)
[2024-09-24] MEDS: ceFAZolin 2000MG 2,000 MG/15 ML SYR IV SCH (10:08)
[2024-09-24] MEDS: ROPIV 0.5% 246mg, Ketorolac 30mg, EPINEPHrine 0.5mg in NSS INFIL SCH (10:40)
[2024-09-24] MEDS: ORTHO JOINT ANESTHETIC ONE (10:40)
[2024-09-24] MEDS ORDERED: PROPOFOL IV EMULSION 10 MG/ML 20 ML VIAL IV ONE (10:53)
[2024-09-24] MEDS ORDERED: GLYCOPYRROLATE 0.2 MG/ML VIAL ONE (10:56)
[2024-09-24] MEDS: TRANEXAMIC ACID 1,000 MG **IV Intra-op IV SCH (11:09)
--- NOTE | 2024-09-24 11:13 | Operative Report ---
PG Post Operative Report Pre & Post Diagnosis Operation Date: 09/24/24 10:00 Pre-Op Diagnosis: Right Shoulder Degenerative Joint Disease with tendinopathy long head of biceps tendon Post-Op Diagnosis: Right Shoulder Degenerative Joint Disease with tendinopathy long head of the biceps tendon I identified the patient and participated in the time-out.: Yes Procedure Operation Date: 09/24/24 10:00 Actual Procedures p Right Reverse Total Shoulder Arthroplasty(Right) with open biceps tenodesis as a distinct and separate procedure (modifier 59)- Storm Marshall DO Surgeon Storm Marshall DO Marketing Services Specialist Pranav Lara PA-C Estimated Blood Loss 250 Findings Consistent with Post-Op Diagnosis Specimens Right humeral head Description of Procedure A CPT code modifier 59: The long head of the biceps tendon was enlarged and inflamed consistent with tendinopathy. A tenodesis was opted. This was a separate and distinct portion of the procedure. For these reasons, a CPT code modifier 59 will be added to this case. Implants used: I used a [employer] Comprehensive reverse total shoulder arthroplasty system with a size 12 press fit micro humeral stem, a +6 offset humeral tray and a +3 retentive humeral bearing, a 25 mm medium augment baseplate with a 6.5 mm central screw and superior and inferior locking screws, and a size 40 mm eccentric glenosphere. Myra arrived at [facility] for the above procedure. She was seen in the preoperative holding area and the operative extremity was identified and signed. She was given a preoperative antibiotic, TXA, and an interscalene nerve block. She was taken back to the operating room, laid on table in supine position, and put under general anesthesia. She was then put into the beachchair position. The shoulder was then prepped and draped in sterile fashion. A timeout was done and the patient and the operative extremity was properly identified. A deltopectoral approach was used. Dissection was taken down through the fascia and the deltoid was retracted laterally and the conjoined tendon was retracted medially. The anterior shoulder was exposed. The biceps groove was opened up and the biceps tendon was examined extensively. The biceps tendon demonstrated enlargement and inflammatory changes consistent with longstanding inflammation in the context of osteoarthritis and cuff arthropathy. The long head of the biceps tendon was then tenodesed to the upper border of the pectoralis major. This was a separate and distinct portion of the procedure. The subscapularis was then directly released off the lesser tuberosity with a peel technique. The inferior capsule was released and the humeral head was dislocated. A canal finding reamer was sent down the center of the humeral canal. Sequential reaming up to a size 12 reamer was done. Off that reamer, a proximal humeral resection guide was placed. The proximal humerus was resected at 135 of inclination and 25 of retroversion. Osteophytes were then removed and the glenoid was exposed. Time was spent doing a complete capsular and labral release. The glenoid guide was then placed in the inferior aspect of the glenoid. A 3.2 mm Steinmann pin was then placed into the glenoid vault at 10 of inclination. The glenoid baseplate was then reamed. The final size 25 mm medium augment baseplate was then impacted in the place. A 6.5 mm central screw was then placed followed by superior and inferior locking screws. A 40 mm eccentric glenosphere was then impacted into place. Surrounding soft tissues were then injected with 100 cc an orthopedic pain control cocktail. The proximal humerus was then exposed. Sequential broaching of the humerus up to a size 12 broach was done. Off that broach a +6 offset and +3 retentive humeral tray was trialed. The shoulder was then reduced, brought through a full range of motion, and felt to be stable. The shoulder was then dislocated and the broach was removed. The final size 12 micro press-fit humeral stem was then impacted into place. A +3 retentive humeral bearing was then snapped onto a +6 offset humeral tray. The humeral tray was then impacted onto the humeral stem. The shoulder was once again reduced, brought through a full range of motion, and felt to be stable. The subscapularis was poor quality and unable to be repaired. A dilute betadyne lavage was then done for 3 minutes. The joint was then irrigated with normal saline solution. Hemostasis was obtained. The interval was closed with 2-0 Vicryl suture. The skin was then closed with 2-0 Vicryl and trever. A Silverlon dressing was placed and the arm was rested in a regular arm sling. She was then extubated and transferred to a hospital bed. She taken to the postanesthesia care unit in stable condition. She tolerated the procedure well. DARLENE Black, was present for the entire procedure. He was critical for patient positioning, prepping, draping, retraction exposure, wound closure and application of sterile dressing. I attest to the content of the Intraoperative Record and any orders documented therein. Any exceptions are noted below.
[2024-09-24] MEDS: fentaNYL citrate PF 100 MCG/2 ML VIAL IV PRN (12:18)
--- NOTE | 2024-09-24 12:29 | Anesthesiology Progress Note ---
Date of Service September 24, 2024 Anesthesia Post Procedure Vital Signs Vital Signs: Temp Pulse Pulse Resp BP Pulse Ox O2 Del Method 09/24/24 12:20 70 12 126/83 93 Nasal Cannula 09/24/24 12:10 70 12 163/93 H 98 Oxymask 09/24/24 12:00 69 16 171/100 H 99 Oxymask 09/24/24 11:50 81 14 166/96 H 96 Oxymask 09/24/24 11:40 89 12 174/102 H 96 Oxymask 09/24/24 11:34 36 C L 90 18 181/100 H 96 Oxymask 09/24/24 09:13 36.5 C 64 18 142/97 H 95 Room Air O2 Flow Rate 09/24/24 12:20 2 09/24/24 12:10 4 09/24/24 12:00 4 09/24/24 11:50 4 09/24/24 11:40 6 09/24/24 11:34 6 09/24/24 09:13 Pain Intensity Bilateral Shoulder: Pain Intensity: 5 Transfer of Care Handoff Completed per policy Notes Mental Status: alert / awake / arousable and participated in evaluation Patient Amnestic to Procedure: Yes Nausea / Vomiting: adequately controlled Pain: adequately controlled Airway Patency, RR, SpO2: stable & adequate BP & HR: stable & adequate Hydration State: stable & adequate Anesthetic Complications: no major complications apparent and Pt Satisfied with anesthetic care
[2024-09-24] MEDS ORDERED: HYDROmorphone INJ 0.5 MG/0.5 ML SYR IV PRN (13:30)
[2024-09-24] MEDS ORDERED: NALOXONE HCL 0.4 MG/1 ML VIAL/CARP IV PRN (13:30)
[2024-09-24] MEDS ORDERED: MAGNESIUM HYDROXIDE SUSP 30 ML UDC PO PRN (13:30)
[2024-09-24] MEDS ORDERED: bisacodyL 10 MG SUPP PR PRN (13:30)
[2024-09-24] MEDS ORDERED: METOCLOPRAMIDE HCL INJ 5 MG/ML 2 ML VIAL IV PRN (13:30)
[2024-09-24] MEDS ORDERED: FUROSEMIDE 20 MG TAB PO PRN (13:30)
[2024-09-24] MEDS: KETOROLAC TROMETHAMINE 15 MG/ML VIAL IV SCH (14:28)
[2024-09-24] MEDS: oxyCODONE HCL IR 5 MG TAB (IMMEDIATE RELEASE) PO PRN (14:56)
[2024-09-24] MEDS: ceFAZolin 1000MG 1,000 MG/7.5 ML SYR IV SCH (17:50)
[2024-09-24] MEDS: MEMANTINE HCL 5 MG TAB PO SCH (20:40)
[2024-09-24] MEDS: amLODIPine BESYLATE 5 MG TAB PO SCH (20:40)
[2024-09-24] MEDS: ATORVASTATIN 40 MG TAB PO SCH (20:40)
[2024-09-24] MEDS: DOCUSATE SODIUM 100 MG CAP PO SCH (20:40)
[2024-09-24] MEDS: traZODone HCL 100 MG TAB PO SCH (20:40)
[2024-09-24] MEDS: SENNA 8.6 MG TAB PO SCH (20:40)
[2024-09-24] MEDS: TOPIRAMATE 50 MG TAB PO SCH (20:40)
[2024-09-24] MEDS: RIVASTIGMINE TARTRATE 1.5 MG CAP PO SCH (20:41)
[2024-09-24] MEDS: ZOLPIDEM TARTRATE 5 MG TAB PO SCH (21:58)
--- NOTE | 2024-09-25 06:32 | Orthopedic Progress Note ---
Date of Service September 25, 2024 Assessment & Plan (1) Status post reverse total replacement of right shoulder: Overall she is doing well. She is not having too much pain in the right shoulder. She will be seen by physical therapy today for ambulation and range of motion exercises. She is awaiting discharge to a custodial facility. Abdoulaye Renteria was seen and examined at bedside this morning. Overall she seems to be doing okay. She is not having too much pain in the right shoulder. She she was able to get some sleep last night. She has no complaints.. Review of Systems All systems reviewed & are unremarkable except as noted in HPI & below. Physical Exam On physical exam of the right shoulder, there is dressing is clean and dry. She is wearing her sling as instructed. She has active motion of her hand and her wrist.. Results & Data Results & Data Laboratory Results . Diagnostic Findings Postoperative x-rays of the right shoulder show the prosthesis to be in anatomic alignment without any evidence of fracture complication, or loosening.. PG Care Time/CCT Total # of Minutes Spent Total Time Spent with Patient: Total time spent is greater than 50% in coordination of care (as documented) at patient's floor/unit and/or counseling patient: Coding Level of Care Code 87436 Post Operative Follow-Up Diagnoses Status post reverse total replacement of right shoulder Z96.611
[2024-09-25] MEDS: PANTOprazole 40 MG TAB PO SCH (07:42)
[2024-09-25] MEDS: VITAMIN B COMPLEX TAB PO SCH (07:42)
[2024-09-25] MEDS: dexAMETHasone 4 MG TAB PO SCH (07:43)
[2024-09-25] MEDS: buPROPion XL 300 MG TABCR PO SCH (07:44)
[2024-09-25] MEDS: lisinopril 10 MG TAB PO SCH (07:44)
[2024-09-25] MEDS: CHOLECALCIFEROL 125 MCG (5,000 UNITS) TAB PO SCH (07:44)
[2024-09-25] MEDS: DULoxetine HCL 30 MG CAP PO SCH (07:45)
[2024-09-25] MEDS: MULTIVITAMIN TAB PO SCH (08:18)
--- NOTE | 2024-09-25 10:10 | XRay Report ---
Indication: Postop right shoulder Comparison studies: Radiographs of the right shoulder dated 08/29/2024 Technique: 2 views of the right shoulder Exam: RIGHT SHOULDER FINDINGS: Shoulder arthroplasty. No periprosthetic fracture or lucency. Alignment is anatomic. Adjacent soft tissue swelling with subcutaneous emphysema. Skin trever are present overlying the incision. There is no evidence of acute fracture, dislocation or osseous lesion. The acromioclavicular joint spaceis preserved. ACDF IMPRESSION: Expected postoperative changes of interval right shoulder arthroplasty without evidence of complication. Electronically signed by Nawaf Gonsalves 09-25-2024 10:10 AM
--- NOTE | 2024-09-26 07:49 | Orthopedic Progress Note ---
Date of Service September 26, 2024 Assessment & Plan (1) Status post reverse total replacement of right shoulder: Overall she is doing about as well as expected. She is having some increased pain today since the block is worn off. She will be seen by physical therapy today for ambulation and range of motion exercises. She is awaiting discharge to a rehab facility. Abdoulaye Renteria was seen and examined at bedside this morning. She is having a lot more pain in her shoulder this morning. The nerve blocks have worn off. She was able to place weight well with physical therapy yesterday. She has no new complaints.. Review of Systems All systems reviewed & are unremarkable except as noted in HPI & below. Physical Exam On physical exam of the right shoulder, the dressing is clean and dry. She is wearing her sling as instructed. She has active motion of her hand and her wrist.. Results & Data Results & Data Laboratory Results . Diagnostic Findings . PG Care Time/CCT Total # of Minutes Spent Total Time Spent with Patient: Total time spent is greater than 50% in coordination of care (as documented) at patient's floor/unit and/or counseling patient: Coding Level of Care Code 29795 Post Operative Follow-Up Diagnoses Status post reverse total replacement of right shoulder Z96.611
[2024-09-26 19:15] VITALS: O2SAT 93
[2024-09-27 07:30] VITALS: BP 125/78; RESP 16; TEMP 98.1
[2024-09-27] MEDS: ONDANSETRON INJ 2 MG/ML 2 ML VIAL IV PRN (07:40)
[2024-09-27 12:13] VITALS: PULSE 74
--- NOTE | 2024-09-27 14:21 | Discharge Summary ---
Date of Service September 27, 2024 Principal Diagnosis Same as "Discharge Diagnosis" noted below under Discharge Instructions. Discharge Exam On physical exam of the right shoulder, the dressing is clean and dry. She is wearing her sling as instructed. She has active motion of her hand and her wrist.. Discharge Data Procedures Performed Operation Date: 09/24/24 10:00 Actual Procedures p Right Reverse Total Shoulder Arthroplasty(Right) - Storm Marshall DO Ordered Studies 09/24/24 05:00 US - OR guided needle placemen Routine Hospital Course (1) Status post reverse total replacement of right shoulder: On September 24, 2024 Myra arrived at [facility] and underwent a right reverse shoulder replacement without complication. She had a general anesthetic and a right interscalene nerve block. Postoperatively she was placed in a sling and transferred to the general orthopedic floors. Her hospital course is uneventful. On postop day #1, her vital signs were stable and her pain was controlled. She was able to participate well with physical therapy doing ambulation and range of motion exercises. On postop day #2, she continued to do well. She worked with physical therapy. The block is worn off and she was having a little bit more pain in the shoulder. On postop day #3 she continued to do well. She was then discharged to a nursing facility. She will follow-up with orthopedics in 2 weeks. PG Care Time/CCT Total # of Minutes Spent Total Time Spent with Patient: Total time spent is greater than 50% in coordination of care (as documented) at patient's floor/unit and/or counseling patient: Discharge Plan Discharge Items Patient Disposition: [facility] Reason For Visit: TOTAL SHOULDER REPLACEMENT Discharge Diagnosis: Right reverse shoulder replacement Activity: Per Instructions section Non-emergency contact: Surgeon Call non-emergency contact if: your wound has increased redness and your wound has increased drainage Follow-up/Referrals: Antwan Barney M.D. [Primary Care Provider] - Diet: Regular Addtl Attending Provider Instructions: Activity and Therapy Recommendations: * If you are using [facility] then therapy will be provided at your home until they feel you have accomplished all of your goals. * If you are using [facility] then Physical Therapy will be provided until they feel you are ready to start Outpatient Physical Therapy. * If you are not using home therapy then Outpatient Physical Therapy should start about 3-5 days from your day of surgery. Therapy will last about 8-12 weeks * Wear your sling for 3 weeks, unless otherwise instructed. You may remove your sling to shower and to dress, but otherwise, you should be in your sling at all times, including while sleeping * The shoulder replacement is very stable and you can use your hand while in the sling * You were shown a series of exercises in the hospital. Do these exercises daily including the exercises you were shown in physical therapy. Medications: * Narcotic You will likely be sent home from the hospital with a prescription for the narcotic pain medication that worked best throughout your stay. * Cefadroxil -take the antibiotic twice a day for 10 days to help prevent infection. * Other medications may be prescribed for specific circumstances. If you have any questions, please call the office at . * Resume previous home medications unless otherwise instructed Dressing Care: Leave the Silverlon dressing in place for 7 days. After 7 days you may remove the dressing. If the incision is not draining then you may leave the trever open to air. If there is a little bit of drainage or if the trever are getting stuck on your clothing then cover the incision with a dry dressing. The trever will be removed at your 2 week follow-up appointment. Showering: You may shower with the Silverlon dressing in place. Do not let the shower spray hit the dressing directly. Pat the Silverlon dressing dry. If the dressing becomes wet underneath, then simply remove the dressing. Keep the incision dry until you are 7 days out from the day of surgery. After 7 days you may remove the Silverlon dressing and shower with the trever exposed. Let soapy water run over the trever and pat them dry. Do not scrub or soak the incision. Diet: You may resume your previous diet. Things To Watch For: * Drainage from the incision site that occurs more than one week after your surgery. * Increased redness at the incision site. * Fever above 102 degrees Fahrenheit. * Unusual chest pain or shortness of breath. * Call [facility] at with any of the above problems Follow-Up Visit: Follow-up with Dr. Marshall's PA (Storm Mcelroy) 2-3 weeks after your day of surgery. He will remove your trever and answer any questions. If you have any additional questions or concerns, Dr Marshall is usually in the office at the same time and will be available An appointment was probably scheduled when you signed-up for surgery in the office. If you have any questions call More detailed instructions as well as Frequently Asked Questions were provided in a folder by our office when you signed-up for surgery. Please review these instructions when you get home. If you have any further questions or concerns, please feel free to call the office at [phone] Pending Studies at Discharge: No Stand-Alone Forms: [employer] Smoking Cessation Skilled Items Patient informed of condition?: Yes DNR: No Discharge Level of Care: Skilled Communicable Disease: No Discharge Prognosis: Improving Lines: None Urinary Catheter: No Medications and DC Order Prescriptions: New oxycodone 5 mg Tablet 5 mg PO Q4H PRN (Reason: pain) Qty: 30 0RF cefadroxil 500 mg capsule 500 mg PO BID 10 Days Qty: 20 0RF Continued amlodipine [Norvasc] 5 mg tablet 5 mg PO HS lisinopril 10 mg tablet 10 mg PO QAM Rx Instructions: LAST FILLED 04/07/23 FOR 5 TABLETS. atorvastatin [Lipitor] 40 mg Tablet 40 mg PO HS gabapentin [Neurontin] 400 mg Capsule 400 mg PO TID Rx Instructions: TOTAL DOSE 500 MG--TAKES WITH 100 MG CAPSULE. pantoprazole [Protonix] 20 mg Tablet,Delayed Release (Dr/Ec) 20 mg PO QAM Rx Instructions: LAST FILLED 04/07/23 FOR 5 TABS. trazodone 100 mg Tablet 200 mg PO HS furosemide [Lasix] 20 mg Tablet 20 mg PO DAILY PRN (Reason: leg edema) Rx Instructions: LAST FILLED 04/07/23 FOR 5 TABS. gabapentin 100 mg Capsule 100 mg PO TID Rx Instructions: TOTAL DOSE 500 MG--TAKES WITH 400 MG CAPSULE. B-complex with vitamin C Tablet 1 tab PO QAM bupropion HCl [Wellbutrin XL] 150 mg Tablet Extended Release 24 Hr 300 mg PO QAM Rx Instructions: LAST FILLED 03/01/23 FOR 90 DAYS. memantine [Namenda] 5 mg Tablet 5 mg PO BID cholecalciferol (vitamin D3) [Vitamin D3] 125 mcg (5,000 unit) Tablet 250 mcg PO QAM topiramate [Topamax] 50 mg Tablet 50 mg PO BID zolpidem [Ambien] 10 mg tablet 10 mg PO HS duloxetine 30 mg capsule,delayed release(DR/EC) 30 mg PO DAILY diazepam [Valium] 10 mg Tablet 10 mg PO TID PRN (Reason: Neuropathy) Medical Marijuana Cream 1 applic topical HS Patient Comments: "I put a cream on my feet at bed time" rivastigmine tartrate 1 tab PO BID Rx Instructions: Reported by patient at PAT visit 08/29/24, patient unsure of dose. alendronate 10 mg Tablet 10 mg PO WK Discharge Orders: Discharge Order (Routine); Ordered 09/27/24 Ordered By: Storm Marshall Admission Data Admit Date/Time: 09/24/24 15:02 Attending Provider: Storm Marshall Admit Provider: Storm Marshall Primary Care Provider: Antwan Barney Other Interventions: Discharge Summary Assessment (RN) Last Done: 09/27/24 12:10
[2024-09-30] MEDS ORDERED: ALENDRONATE SODIUM 10 MG TAB PO SCH (07:00)
== END 2024-09-27 13:35 | DRG 483 ==
LOC: ASU 08:20 → 3E 08:20